=== PATIENT | female | born 1980 | race Two or more races ===

== ENCOUNTER 2021-04-24 06:50 | Day surgery (SDC) | payer OTHER | END 2021-04-24 13:42 | disposition home or self-care (01) | LOC: CIR.AMB 06:50 | PROVIDERS: ATTEND Obstetrics & Gynecology | DX: N84.0 Polyp of corpus uteri (principal); Z20.822 Contact with and (suspected) exposure to COVID-19 ==

== ENCOUNTER 2024-02-22 17:37 | Inpatient (IN) | payer OTHER ==
[~2024-02-22] VITALS: Ht 165.1 cm; Wt 68.0 kg
--- NOTE | 2024-02-22 18:32 | NUR ---
SE RECIBE FEMINA ALERTA Y ORIENTADA X3 CUAL PRESENTA DIFICULTAD RESPIRATORIA Y TOS SHAYY. PRESENTA SILBIDO AL RESPIRAR. SE RAKESH BP MANUAL 210/140.
[2024-02-22] MEDS ORDERED: ESCITALOPRAM OX10 MG PO (18:38)
[2024-02-22] MEDS ORDERED: IPRATROPIUM/ALBUTEROL SULFATE 3 ML AMPUL.NEB IH SCH (18:45)
[2024-02-22] MEDS ORDERED: METHYLPREDNISOLONE SOD SUCC 125 MG VIAL IV ONE (18:45)
[2024-02-22] MEDS ORDERED: MAGNESIUM SULFATE 10,000 MG/20 ML VIAL IV ONE (18:45)
[2024-02-22] MEDS ORDERED: HYDROCODONE/CHLORPHEN P-STIREX 5 ML ML PO ONE (18:45)
[2024-02-22] MEDS ORDERED: 0.9 % SODIUM CHLORIDE 1,000 ML IV SCH ×2 (19:00→23:45)
[2024-02-22] MEDS ORDERED: CEFTRIAXONE SODIUM 2,000 MG VIAL IV ONE (19:00)
[2024-02-22 19:06] LABS: HEMATOCRIT 43.3 % (36.0-45.00); HEMOGLOBIN 14.1 g/dL (12.0-15.00); MEAN CELL VOLUME 84.8 fL (80.00-100.00); MEAN CORPUSCULAR HEMOGLOBIN 27.7 pg (27.00-32.0); MEAN CORPUSCULAR HGB CONC 32.7 g/dl (32.0-36.0); PLATELET COUNT 339 K/uL (150-450); RED BLOOD COUNT 5.11 M/uL (4.00-6.00); RED CELL DISTRIBUTION WIDTH 15.6 % (11.5-14.5)
[2024-02-22 19:07] LABS: ABG PH 7.403 (7.35-7.45); ABG PO2 86.3 mmHg (80-100); ABG pCO2 31.6 mmHg (35-45); BASE EXCESS -4.3 mmol/l; BICARBONATE 19.3 mmol/l (23-25); SaO2 96.4 %; Tco2 20.2 mmol/l
--- NOTE | 2024-02-22 19:08 | NUR ---
SE EDUCA A PTE SOBRE TX MEDICO, SE MARCIE MUESTRAS DE LABOORATORIO UTILIZANDO MEDIDAS ASEPTICAS. SE COLOCA H/L JANICE DE EDEMA. SE ADMINISTRAN EMDICAMENTOS LOS CUALES TOLERA. SE NOTIFICA ESTUDIO DE RX, ABGS Y TERAPIAS PENDIENTES.
[2024-02-22 19:09] LABS: allen test SATISFACTORY; o2 21 %; puncture site RADIAL RIGHT
[2024-02-22 20:23] LABS: ALBUMIN 4.2 gm/dL (3.4-5.0); BILIRUBIN TOTAL 0.27 mg/dL (0.3-1.2); CALCIUM 9.4 mg/dL (8.5-10.1); CREATININE SERUM 0.67 mg/dL (0.55-1.02); GFR 95.18; GLOBULINA 3.6 G/DL (2.4-3.5); POTASSIUM 4.9 mEq/L (3.5-5.1); TOTAL PROTEIN 7.8 gm/dL (6.4-8.2)
[2024-02-22] MEDS ORDERED: AZITHROMYCIN 500 MG in DEXTROSE 5 % IN WATER 250 ML IV SCH (23:45)
[2024-02-22] MEDS ORDERED: ACETAMINOPHEN 500 MG GEL..CAP PO PRN (23:45)
[2024-02-23] MEDS ORDERED: ENALAPRILAT DIHYDRATE 1.25 MG/ML VIAL IV PRN (00:15)
[2024-02-23] MEDS ORDERED: GUAIFEN/DEXTROMETHORPHAN/PE 10 ML BLIST.PACK PO SCH (01:00)
[2024-02-23] MEDS ORDERED: METHYLPREDNISOLONE SOD SUCC 40 MG VIAL IV SCH ×2 (01:00→17:00)
[2024-02-23] MEDS ORDERED: IPRATROPIUM BROMIDE 0.5 MG/2.5 ML AMPUL.NEB IH SCH (01:00)
[2024-02-23] MEDS ORDERED: LEVALBUTEROL HCL 1.25 MG/3 ML SOLUTION IH SCH (01:00)
[2024-02-23 01:58] LABS: D DIMER 0.51 MG/L; PARTIAL THROMBOPLASTIN TIME 26.9 SECONDS (22.0-34.0)
[2024-02-23 02:00] LABS: INR 0.94; PROTHROMBIN TIME 10.3 SECONDS (9.0-11.5)
[2024-02-23 02:19] VITALS: BP 162/90; O2SAT 99
[2024-02-23 02:48] LABS: URINE APPEARANCE Clear; URINE BILIRRUBIN Negative (NEGATIVE); URINE BLOOD Negative; URINE COLOR Yellow; URINE KETONE Negative (NEGATIVE); URINE LEUKOCYTE Negative; URINE NITRATE Negative; URINE PROTEIN Negative (NEGATIVE); URINE UROBILINOGEN 0.2 E.U./dl
[2024-02-23 02:52] LABS: URINE BACTERIA 565.6 uL (0.0-1933); URINE EPITHELIAL CELLS 7.5 uL (0.0-38.8); URINE RBC 8.7 uL (0.0-20.8); URINE WBC 3.8 uL (0.0-23.2)
[2024-02-23 04:13] LABS: URINE CAST 0.15 uL (0.0-1.40); URINE GLUCOSE 100 MG/DL (NEGATIVE)
[2024-02-23 06:00] VITALS: BP 180/100; O2SAT 96
[2024-02-23 08:31] VITALS: BP 160/85
[2024-02-23] MEDS ORDERED: CEFTRIAXONE SODIUM 2,000 MG in 0.9 % SODIUM CHLORIDE 100 ML IV SCH (09:00)
[2024-02-23] MEDS ORDERED: FAMOTIDINE/PF 20 MG in 0.9 % SODIUM CHLORIDE 8 ML IV PUSH SCH (09:00)
[2024-02-23] MEDS ORDERED: AZITHROMYCIN 500 MG VIAL IV SCH (09:00)
[2024-02-23] MEDS ORDERED: ENOXAPARIN SODIUM 40 MG/0.4 ML SYRINGE SUBCUTANEO SCH (09:00)
[2024-02-23] MEDS ORDERED: AMLODIPINE BESYLATE 5 MG TABLET PO NR (10:00)
[2024-02-23 16:46] VITALS: BP 168/96; O2SAT 96
[2024-02-23] MEDS ORDERED: MONTELUKAST SODIUM 10 MG TABLET PO SCH (17:00)
[2024-02-23 21:26] VITALS: BP 150/90
[2024-02-24 00:44] VITALS: BP 160/85; O2SAT 97
[2024-02-24 05:04] LABS: HEMATOCRIT 37.8 % (36.0-45.00); HEMOGLOBIN 12.4 g/dL (12.0-15.00); MEAN CELL VOLUME 84.2 fL (80.00-100.00); MEAN CORPUSCULAR HEMOGLOBIN 27.6 pg (27.00-32.0); MEAN CORPUSCULAR HGB CONC 32.7 g/dl (32.0-36.0); PLATELET COUNT 268 K/uL (150-450); RED BLOOD COUNT 4.49 M/uL (4.00-6.00); RED CELL DISTRIBUTION WIDTH 15.7 % (11.5-14.5)
[2024-02-24 05:37] LABS: ALBUMIN 3.8 gm/dL (3.4-5.0); BILIRUBIN TOTAL 0.33 mg/dL (0.3-1.2); CALCIUM 8.9 mg/dL (8.5-10.1); CREATININE SERUM 0.56 mg/dL (0.55-1.02); GFR 117.07; GLOBULINA 3.1 G/DL (2.4-3.5); MAGNESIUM 2.2 mg/dL (1.8-2.4); PHOSPHOROUS 3.1 mg/dL (2.5-4.9); POTASSIUM 4.38 mEq/L (3.5-5.1); TOTAL PROTEIN 6.9 gm/dL (6.4-8.2)
[2024-02-24 05:39] LABS: C-REACTIVE PROTEIN 0.71 MG/DL (0.00-0.29)
[2024-02-24 08:46] VITALS: BP 158/83
[2024-02-24] MEDS ORDERED: HYDROCHLOROTHIAZIDE 12.5 MG CAPSULE PO SCH (09:00)
[2024-02-24] MEDS ORDERED: AMLODIPINE BESYLATE 5 MG TABLET PO SCH (09:00)
== END 2024-02-24 16:31 | disposition home or self-care (01) | DRG 194 ==
LOC: ER 17:39 → MEDI 23:48 → MEDJ 23:48 → MEDI 02-23 02:16
PROVIDERS: General Practice; Internal Medicine Infectious Disease; ADMIT Student in an Organized Health Care Education/Training Program; ATTEND Student in an Organized Health Care Education/Training Program
PROC: BW24ZZZ Computerized Tomography (CT Scan) of Chest and Abdomen (ICD-10-PCS; principal; 2024-02-22)
DX: J18.9 Pneumonia, unspecified organism (principal); J45.41 Moderate persistent asthma with (acute) exacerbation

== ENCOUNTER 2024-04-09 11:42 | Emergency (ER) | payer OTHER ==
[~2024-04-09] VITALS: Ht 160 cm; Wt 68.0 kg
[~2024-04-09 11:42] MED LIST: ESCITALOPRAM OX10 MG PO
[2024-04-09] MEDS ORDERED: IPRATROPIUM BROMIDE 0.5 MG/2.5 ML AMPUL.NEB IH SCH (16:15)
[2024-04-09] MEDS ORDERED: LEVALBUTEROL HCL 1.25 MG/3 ML SOLUTION IH SCH (16:15)
[2024-04-09] MEDS ORDERED: GUAIFENESIN 200 MG/10 ML BLIST.PACK PO ONE ×2 (16:15→16:29)
[2024-04-09] MEDS ORDERED: BENZONATATE 100 MG CAPSULE PO ONE (16:15)
[2024-04-09] MEDS ORDERED: METHYLPREDNISOLONE SOD SUCC 125 MG VIAL IV ONE (16:15)
[2024-04-09] MEDS ORDERED: METHYLPREDNISOLONE SOD SUCC 125 MG VIAL ONE (16:29)
[2024-04-09] MEDS ORDERED: IPRATROPIUM BROMIDE 0.5 MG/2.5 ML AMPUL.NEB IH ONE (18:07)
[2024-04-09] MEDS ORDERED: LEVALBUTEROL HCL 1.25 MG/3 ML SOLUTION IH ONE (18:07)
[2024-04-09 18:26] LABS: CALCIUM 9.9 mg/dL (8.5-10.1); CREATININE SERUM 0.67 mg/dL (0.55-1.02); GFR 95.18; POTASSIUM 4.14 mEq/L (3.5-5.1)
[2024-04-09 18:27] LABS: HEMATOCRIT 41.6 % (36.0-45.00); HEMOGLOBIN 13.4 g/dL (12.0-15.00); MEAN CELL VOLUME 83.6 fL (80.00-100.00); MEAN CORPUSCULAR HEMOGLOBIN 27.1 pg (27.00-32.0); MEAN CORPUSCULAR HGB CONC 32.3 g/dl (32.0-36.0); PLATELET COUNT 280 K/uL (150-450); RED BLOOD COUNT 4.97 M/uL (4.00-6.00); RED CELL DISTRIBUTION WIDTH 16.6 % (11.5-14.5)
== END 2024-04-09 18:54 | disposition home or self-care (01) ==
LOC: ER 11:44
PROVIDERS: General Practice
DX: J45.998 Other asthma (principal); Z88.6 Allergy status to analgesic agent; Z20.822 Contact with and (suspected) exposure to COVID-19

== ENCOUNTER 2024-05-20 17:44 | Emergency (ER) | payer OTHER ==
[~2024-05-20] VITALS: Ht 160 cm; Wt 68.0 kg
[2024-05-20] MEDS ORDERED: METHYLPREDNISOLONE SOD SUCC 125 MG VIAL IV ONE (19:00)
[2024-05-20] MEDS ORDERED: hydrALAZINE HCL 20 MG VIAL IV ONE (19:00)
[2024-05-20] MEDS ORDERED: AZITHROMYCIN 500 MG TABLET PO ONE ×2 (19:00→19:44)
[2024-05-20] MEDS ORDERED: HYDROCODONE/CHLORPHEN P-STIREX 5 ML ML PO ONE (19:15)
[2024-05-20] MEDS ORDERED: LEVALBUTEROL HCL 1.25 MG/3 ML SOLUTION IH SCH (19:15)
[2024-05-20] MEDS ORDERED: hydrALAZINE HCL 20 MG VIAL ONE (19:44)
[2024-05-20 19:45] LABS: HEMATOCRIT 37.7 % (36.0-45.00); HEMOGLOBIN 12.2 g/dL (12.0-15.00); MEAN CELL VOLUME 81.9 fL (80.00-100.00); MEAN CORPUSCULAR HEMOGLOBIN 26.6 pg (27.00-32.0); MEAN CORPUSCULAR HGB CONC 32.5 g/dl (32.0-36.0); PLATELET COUNT 316 K/uL (150-450); RED BLOOD COUNT 4.59 M/uL (4.00-6.00); RED CELL DISTRIBUTION WIDTH 16.2 % (11.5-14.5)
[2024-05-20] MEDS ORDERED: LEVALBUTEROL HCL 1.25 MG/3 ML SOLUTION IH ONE (19:45)
[2024-05-20] MEDS ORDERED: METHYLPREDNISOLONE SOD SUCC 125 MG VIAL ONE (19:45)
[2024-05-20 19:53] LABS: ABG PH 7.425 (7.35-7.45); ABG PO2 77.3 mmHg (80-100); ABG pCO2 35.2 mmHg (35-45); BASE EXCESS -1.1 mmol/l; BICARBONATE 22.6 mmol/l (23-25); SaO2 95.6 %; Tco2 23.7 mmol/l
[2024-05-20 20:10] LABS: ALBUMIN 3.8 gm/dL (3.4-5.0); BILIRUBIN TOTAL 0.14 mg/dL (0.3-1.2); CREATININE SERUM 0.71 mg/dL (0.55-1.02); GFR 89.02; GLOBULINA 3.1 G/DL (2.4-3.5); POTASSIUM 4.04 mEq/L (3.5-5.1); TOTAL PROTEIN 6.9 gm/dL (6.4-8.2)
[2024-05-20 20:32] LABS: allen test SATISFACTORY; puncture site RADIAL RIGHT
[2024-05-20 20:33] LABS: o2 21 %
[2024-05-20 21:17] LABS: PH,URINE 5.5 (5.0-8.0); URINE APPEARANCE Clear; URINE BILIRRUBIN Negative (NEGATIVE); URINE BLOOD Negative; URINE COLOR Yellow; URINE GLUCOSE Negative (NEGATIVE); URINE KETONE Trace (NEGATIVE); URINE LEUKOCYTE Negative; URINE NITRATE Negative; URINE PROTEIN Trace (NEGATIVE); URINE UROBILINOGEN 0.2 E.U./dl
[2024-05-20 21:20] LABS: URINE BACTERIA 507.8 uL (0.0-1933); URINE EPITHELIAL CELLS 25.6 uL (0.0-38.8); URINE RBC 8.3 uL (0.0-20.8); URINE WBC 6.9 uL (0.0-23.2)
[2024-05-20 21:22] LABS: URINE CAST 0.58 uL (0.0-1.40)
[2024-05-20] MEDS ORDERED: MEDROLPACK PO (22:46)
[2024-05-20] MEDS ORDERED: TUSNEL LIQUID178 ML PO (22:46)
[2024-05-20] MEDS ORDERED: XOPENEX CO1.25 MG/0. IH (22:46)
[2024-05-20] MEDS ORDERED: LEVOFLOXACIN500 MG PO (22:46)
== END 2024-05-20 22:49 | disposition home or self-care (01) ==
LOC: ER 17:47
PROVIDERS: General Practice
DX: J06.9 Acute upper respiratory infection, unspecified (principal); Z20.822 Contact with and (suspected) exposure to COVID-19; Z88.6 Allergy status to analgesic agent

== ENCOUNTER 2024-11-14 19:30 | Emergency (ER) | payer OTHER ==
[~2024-11-14] VITALS: Ht 165.1 cm; Wt 65.8 kg
[~2024-11-14 19:30] MED LIST changes: +LEVOFLOXACIN500 MG PO; +MEDROLPACK PO; +TUSNEL LIQUID178 ML PO; +XOPENEX CO1.25 MG/0. IH
[2024-11-14] MEDS ORDERED: BISOPROLOL FUMAR5 MG (20:39)
[2024-11-14] MEDS ORDERED: METHYLPREDNISOLONE SOD SUCC 125 MG VIAL IV STA ×2 (22:30→22:32)
[2024-11-14] MEDS ORDERED: HYDROCODONE/CHLORPHEN P-STIREX 5 ML ML PO STA (22:32)
[2024-11-14] MEDS ORDERED: BUDESONIDE 0.5 MG/2 ML AMPUL.NEB IH STA (22:33)
[2024-11-14] MEDS ORDERED: IPRATROPIUM/ALBUTEROL SULFATE 3 ML AMPUL.NEB IH STA (22:34)
[2024-11-14 23:01] LABS: BASO % 1.4 % (0.1-1.2); EOS # 0.97 (0.04-0.54); EOS % 10.2 % (0.7-7.0); LYMPH # 2.09 (1.18-3.74); LYMPH % 22.0 % (19.3-53.1); MEAN PLATELET VOLUME 10.70 fl (9.4-12.4); MONO # 0.80 (0.24-0.82); MONO % 8.4 % (4.7-12.5); NEUT # 5.49 (1.56-6.13); NEUT % 57.7 % (34.0-71.1); RED CELL DISTRIBUTION WIDTH 16.7 % (11.6-14.4)
[2024-11-15 00:15] LABS: COVID-19 AG NEGATIVE (NEGATIVE)
== END 2024-11-15 01:47 | disposition home or self-care (01) ==
LOC: ER 19:30
DX: J45.991 Cough variant asthma (principal); J06.9 Acute upper respiratory infection, unspecified; I10 Essential (primary) hypertension; Z88.6 Allergy status to analgesic agent; Z20.822 Contact with and (suspected) exposure to COVID-19